=== PATIENT | female | born 1950 | race African-American/Black ===

== ENCOUNTER 2017-04-07 21:04 | Inpatient (IN) | payer OTHER ==
[~2017-04-07] VITALS: Ht 162.6 cm; Wt 68.5 kg
--- NOTE | ~2017-04-07 | EKG ---
PATIENT: DARWIN GUNN UNIT #: [id number] Ventricular Rate: 119 BPM Atrial Rate: 119 BPM P-R Interval: 148 ms QRS Duration: 64 ms Q-T Interval: 328 ms QTC Calculation(Bezet): 461 ms P [place]: 59 degrees Calculated R [place]: -21 degrees Calculated T [place]: 76 degrees Diagnosis Line: Sinus tachycardia Diagnosis Line: Possible Left atrial enlargement Diagnosis Line: Low voltage QRS Diagnosis Line: Septal infarct , age undetermined Diagnosis Line: Abnormal ECG Diagnosis Line: When compared with ECG of 28-FEB-2016 23:38, Diagnosis Line: Septal infarct is now Present Diagnosis Line: Confirmed by MALATHI DANGELO MD ([id number]) on Diagnosis Line: 04/08/2017 5:09:17 PM INTERPRETING MD: ANTOLIN DYER
--- NOTE | ~2017-04-07 | CR72 ---
[facility] A Service of [facility] RADIOLOGY TEXT RESULTS PATIENT: DARWIN GUNN LOCATION: [facility] 570-01 : 49 UNIT #: [id number] AGE: [address]: KASEY BRITTON V SEX: F ORDER DR: [id number] [facility] [address] [place], [place] [address] [id number] I MR#: [id number] Acc #: [id number] NAME: DARWIN GUNN : 1950 SEX: F STUDY DATE/TIME: 04/10/2017 12:55 UNIT: [facility] ROOM: [facility] STUDY DESCRIPTION: CR Chest Single View Portable Attending Physician: Kasey Britton M.D. Ordering Physician: Ramirez Pacheco M.D. Primary Care Physician: Primary Care Physician No MEDICAL IMAGING REPORT This report is preliminary unless electronic signature is present EXAM Frontal chest 04/10/2017 INDICATIONS 66-year-old female with shortness of air, cough and congestion since THE March. TECHNIQUE/COMPARISON Frontal chest, correlate with CT chest 04/08/2017 FINDINGS Right-sided MediPort catheter extends to the right atrial level. Correlate with desired level of positioning. Cardiac silhouette is stable. Lung volumes are low. The left lung is clear. There is persistent chronic appearing volume loss on the right. Opacities associated with operative changes in the midlung zone on the right are not significantly changed for technical factors. The patient has underlying adenopathy in the right hilum and subcarinal stations better demonstrated on the prior CT. No pneumothorax. IMPRESSION 1. Postop changes in the right lung with associated volume loss and probable atelectasis and scarring associated with the operative bed. 2. No pneumothorax or significant pleural effusion. Left lung clear. 3. MediPort catheter tip is in the right atrial region. Correlate with desired level of positioning. Dictated by... Carl Hutchison M.D. THIS IS AN ELECTRONICALLY VERIFIED REPORT Carl Hutchison M.D. at 04/10/2017 5:12 PM JLY/to STS. [facility] A Service of [facility] RADIOLOGY TEXT RESULTS PATIENT: DARWIN GUNN LOCATION: [facility] 570- : 49 UNIT #: [id number] AGE: [address]: KASEY BRITTON V SEX: F ORDER DR: TD: 04/10/2017 16:16 JOB #: [id number] MEDICAL IMAGING REPORT Page 1 of 1 COPY
--- NOTE | ~2017-04-07 | CT16 ---
[facility] A Service of [facility] & [facility] RADIOLOGY TEXT RESULTS PATIENT: DARWIN GUNN [facility]ATION: [facility] 570-01 : 49 UNIT #: [id number] AGE: [address]: KASEY BRITTON V SEX: F ORDER DR: [id number] [facility] [address] [place], [place] [address] [id number] MR#: [id number] Acc #: [id number] NAME: DARWIN GUNN : 1950 SEX: F STUDY DATE/TIME: 04/08/2017 02:03 UNIT: CEDOF ROOM: 19907 STUDY DESCRIPTION: CT Angio Chest for PE Attending Physician: Kasey Britton M.D. Ordering Physician: Karina Elizondo M.D. Primary Care Physician: No Primary Care Physician MEDICAL IMAGING REPORT This report is preliminary unless electronic signature is present EXAM Chest CTA, 04/08/17 at 02:03 INDICATIONS Nausea and vomiting today after radiation for lung cancer. Shortness of air today. TECHNIQUE Axial images were obtained through the chest following IV contrast administration. 3-D reformats were obtained. No comparison. This CT exam was performed with one or more of the following radiation dose reduction techniques: automatic exposure control, adjustment of mA and/or kV according to patient size, and iterative reconstruction. FINDINGS Exam is degraded by the lack of comparison studies. The exam is also degraded by respiratory motion. No central pulmonary embolism is seen. The more peripheral pulmonary arterial branches on both sides are fairly poorly evaluated due to artifact from excessive motion. No aortic dissection is seen. There is an aberrant right subclavian artery. There is coronary artery disease. There is subcarinal adenopathy measuring 2.5 cm short axis. No other definite adenopathy is seen. No pleural or pericardial effusion. Patient is status post partial lung resection on the right. Staple lines are present. There is pulmonary parenchymal density near the staple line which is presumably scar tissue. There may be some abnormal soft tissue in the hilum extending into the right lower lobe. Again, this presumably reflects tumor and evaluation is markedly limited by both the lack of comparisons as well as motion. No pneumothorax. No clearly suspicious osseous lesions. For description of findings in the upper abdomen, please [facility]. [facility] A Service of [facility] & [facility] RADIOLOGY TEXT RESULTS PATIENT: DARWIN GUNN [facility]ATION: [facility] 570-01 : [birth year] UNIT #: [id number] AGE: [address]: KASEY BRITTON V SEX: F ORDER DR: see the abdomen and pelvis CT report dictated separately. IMPRESSION 1. This exam is markedly degraded by excessive respiratory motion as well as the lack of comparison studies. 2. No central pulmonary embolism is seen. More peripheral pulmonary arterial branches in both lungs are fairly poorly evaluated due to motion. No aortic dissection. 3. Postop change with volume loss in the right hemithorax. Soft tissue density along the staple lines in the right lung is presumably scar tissue but comparison with outside priors is needed. Additionally, there is prominent soft tissue in the right hilum which may also reflect scar tissue or probably tumor based on patient history. 4. Subcarinal adenopathy. 5. Left lung grossly clear allowing for excessive motion. 6. Coronary artery disease and atherosclerotic disease. Dictated by... Kevin Cruz Jr., M.D. THIS IS AN ELECTRONICALLY VERIFIED REPORT Kevin Cruz Jr., M.D. at 04/08/2017 8:14 PM AYDIN/coty TD: 04/08/2017 11:49 JOB #: [id number] MEDICAL IMAGING REPORT Page 1 of 1 COPY
--- NOTE | ~2017-04-07 | CO ---
Unit #: [id number] #: [id number] Patient: DARWIN GUNN [id number] [address] [place], [place] [address] [id number] I MR#: [id number] NAME: DARWIN GUNN ROOM: 570 Age: 66 Sex: F Admission Date: 04/08/2017 : 1950 Attending Physician: Tyler Ramsey M.D. Consultation Date: 04/08/2017 CONSULTATION REPORT PRIMARY CARE Marily Khalil M.D. REASON FOR EVALUATION Neutropenia, chemotherapy induced, and possible colitis. HISTORY OF PRESENT ILLNESS A 66-year-old lady with a history of nonsmall cell lung cancer, we do not have the records yet, states that she has been treated with about 15 radiation treatments and weekly chemotherapy. Last chemotherapy was about five days ago. She does not remember the dates very well and does not know the name of the doctor and the radiation, but the chemotherapy doctor is Dr. Damion Chinchilla. PAST MEDICAL HISTORY 1. Cerebrovascular accident with left-sided weakness. 2. Essential hypertension. 3. No other major illnesses. CHRONIC MEDICATIONS 1. Vitamins. 2. Aspirin. 3. Some high blood pressure medication, she does not know the name. ALLERGIES No known allergies. FAMILY HISTORY Highly positive for malignancies of various types, but she herself had lung cancer. SOCIAL HISTORY Quit smoking about a year ago. Occasional beer. Lives with a cousin. REVIEW OF SYSTEMS Tiredness, abdominal pain, shortness of breath, and cough. Otherwise, six to eight systems were within normal limits. PHYSICAL EXAMINATION GENERAL: She does have right-sided weakness. LYMPHATICS: No palpable nodes. LUNGS: Left lung is clear. Right side with poor air entry. CARDIOVASCULAR: Distant S1 and S2. ABDOMEN: No palpable liver or spleen. Unit #: [id number] #: [id number] Patient: DARWIN GUNN CENTRAL NERVOUS SYSTEM: Not examined in detail. She moves upper and lower extremities well. There is some weakness on the facial muscles, and memory was not checked in detail. PELVIC/BREASTS: Not performed. DIAGNOSTIC STUDIES LABORATORY: Chemistries with glucose 177, BUN 6, creatinine 0.5, sodium 137, potassium 3.5, chloride 111, and CO2 of 22. Hemoglobin 8.7, hematocrit 26.5, MCV 89.3, white count 1000, and platelets 156,000 with 76% neutrophils and 15% lymphocytes. IMPRESSION 1. Neutropenia with very low-grade temperature. 2. Radiation chemotherapy induced #1. 3. Lung cancer, nonsmall cell, currently undergoing radiation and chemotherapy concurrently in the [facility]. 4. Hypertension. 5. History of cerebrovascular accident, stable. PLAN Agree with broad spectrum antibiotics and GCSF, 5 mcg/kg is adequate. We shall monitor the CBCs closely and discuss with Dr. Chinchilla in the morning that she is here and what we are doing for her, and that we will send her back for his care as soon as she is up and about. Dictated by... Rey Valentin M.D. SPS/serene TD: 04/08/2017 21:42 JOB #: [id number] CONSULTATION REPORT Page 1 of 1 X Rey Valentin MD X CONSULTATION REPORT
--- NOTE | ~2017-04-07 | DS ---
Unit #: [id number] #: [id number] Patient: DARWIN GUNN [id number] [address] [address] [id number] I MR#: [id number] NAME: DARWIN GUNN ROOM: 570 Age: 66 Sex: F Admission Date: 04/08/2017 : 1950 Discharge Date: 04/12/2017 Attending Physician: Tyler Ramsey M.D. Primary Care Physician: Amberly Primary Care Physician DISCHARGE SUMMARY DISCHARGE DIAGNOSES 1. Diverticulitis. 2. Sepsis. 3. Miz-talph-crge lung cancer. 4. History of CVA with left-sided paralysis. 5. Acute bronchitis. 6. Chemo-induced neutropenia. HOSPITAL COURSE The patient is a 66-year-old female with dxe-zknak-zueo lung cancer, undergoing chemo and radiation. She was admitted for diverticulitis. She was noted to have a fever upon admission and CT scan showed diverticulitis. The patient was noted to be neutropenic upon presentation, felt secondary to her ongoing chemo for her cancer. The patient was stated on IV antibiotics and admitted. The patient was seen in consultation by oncology, who ordered GCSF. At this time her white blood cell count is 3.5 with 72% neutrophils. The patient states that she is now tolerating a diet, but not having any significant nausea. As a result she is being discharged home at this time to complete six more days of IV antibiotics. DISCHARGE MEDICATIONS 1. Ventolin 1 puff daily. 2. Lomotil light 2.5 mg p.o. q.i.d. p.r.n. diarrhea. 3. Aspirin 325 mg p.o. daily. 4. Augmentin 875 mg p.o. b.i.d. times 6 days. 5. Metronidazole 500 mg p.o. t.i.d. times 6 days. FOLLOWUP The patient states she has a followup with oncology on Friday and I have encouraged her to keep that appointment. Dictated by... Omid Harris M.D. DIANDRA/emery TD: 04/13/2017 07:41 JOB #: [id number] Unit #: [id number] #: [id number] Patient: DARWIN GUNN DISCHARGE SUMMARY Page 1 of 1 X Omid Harris MD X DISCHARGE SUMMARY
--- NOTE | ~2017-04-07 | CR72 ---
[facility] A Service of [facility] RADIOLOGY TEXT RESULTS PATIENT: DARWIN GUNN LOCATION: [facility] : [birth year] UNIT #: [id number] AGE: [address]: KASEY BRITTON V SEX: F ORDER DR: [id number] [facility] [address] [place], [place] [address] [id number] I MR#: [id number] Acc #: [id number] NAME: DARWIN GUNN : 1950 SEX: F STUDY DATE/TIME: 04/07/2017 23:00 UNIT: CEDOF ROOM: 92162 STUDY DESCRIPTION: CR Chest Single View Portable Attending Physician: Kasey Britton M.D. Ordering Physician: Karina Elizondo M.D. Primary Care Physician: No Primary Care Physician MEDICAL IMAGING REPORT This report is preliminary unless electronic signature is present EXAM Portable chest 04/07/20 at 23:00 hours INDICATIONS Cough, congestion and shortness of air today. FINDINGS AP portable chest was obtained. No comparison. The left lung is clear. Masslike density in the right hilum is noted. There are numerous staple lines in the right lung. There is elevation of the right hemidiaphragm. Patient also has a right side Port-A-Cath with tip in the right atrial level. The patient presumably has a history of lung cancer. No history is been provided as such. No acute infiltrates. Heart size normal. IMPRESSION Postoperative changes with volume loss in the right hemithorax. Patient presumably has a history of malignancy. Correlate clinically as no relevant history is been provided in this regard. No clear acute findings in the chest. Dictated by... Kevin Cruz Jr., M.D. THIS IS AN ELECTRONICALLY VERIFIED REPORT Kevin Cruz Jr., M.D. at 04/08/2017 8:13 PM AYDIN/coty TD: 04/08/2017 11:32 JOB #: [id number] [facility] A Service of [facility] RADIOLOGY TEXT RESULTS PATIENT: DARWIN GUNN LOCATION: [facility] 570-01 : [birth year] UNIT #: [id number] AGE: [address]: KASEY BRITTON V SEX: F ORDER DR: MEDICAL IMAGING REPORT Page 1 of 1 COPY
--- NOTE | ~2017-04-07 | HP ---
Unit #: [id number] #: [id number] Patient: DARWIN GUNN [id number] [address] [address] [id number] I MR#: [id number] NAME: DARWIN GUNN ROOM: [address]345 Age: 66 Sex: F Admission Date: 04/08/2017 : 1950 Attending Physician: Marily Khalil M.D. Primary Care Physician: No Primary Care Physician HISTORY AND PHYSICAL CHIEF COMPLAINT Diverticulitis, chemotherapy induced neutropenia. HISTORY This pleasant 66-year-old female with non-small cell lung cancer, currently undergoing radiation and chemotherapy, is admitted for diverticulitis and neutropenia. The patient herself is only a fair historian. She states that she last received chemotherapy five days ago. Yesterday she underwent radiation treatment. Developed lower abdominal pain and presented to this emergency department late last evening. Her rectal temperature was 100.7, she was tachycardic. CT scans performed showed probable sigmoid diverticulitis. The patient's white blood count is 1.l. Her ANC is around 88. She was bolused with IV fluids, given Zosyn, vancomycin and tobramycin. PAST MEDICAL HISTORY 1. Stage 3A non-small cell lung cancer diagnosed about a year ago. Status post right middle lobe lobectomy. Patient currently is receiving chemotherapy and radiation treatment. Her oncologist is Dr. Chinchilla. 2. Previous CVA with left-sided weakness. 3. Essential hypertension. 4. BTL. 5. Right chest port placement. ALLERGIES No known drug allergies. HOME MEDICATIONS Antihypertensive medication, vitamins and aspirin. She receives her prescriptions through [facility]. FAMILY HISTORY Positive for malignancy. SOCIAL HISTORY The patient lives with her cousin. She stopped smoking about a year ago, drinks occasional beer. REVIEW OF SYSTEMS Notable for abdominal pain, nausea, some diarrhea, chills, lung cancer, hypertension, previous stroke and above mentioned surgeries. All other systems were reviewed and otherwise negative. Unit #: [id number] #: [id number] Patient: DARWIN GUNN PHYSICAL EXAMINATION GENERAL: Pleasant, 66-year-old female currently in no acute distress. VITAL SIGNS: Rectal temperature 100.7, pulse 129, respirations 30, blood pressure 108/80, O2 saturation is 100% on room air. HEENT: Eyes - PERRLA, extraocular muscles are intact. Pharynx is benign with a left lower facial droop. NECK: Supple without adenopathy or thyromegaly. CHEST: Fairly clear. CARDIAC: Slightly tachy S1 and S2 without murmur. ABDOMEN: Bowel sounds are present. Patient is tender in the left lower quadrant but without rebound or guarding. No definite hepatosplenomegaly or masses. EXTREMITIES: Without clubbing, cyanosis or edema. Pedal pulses are present. NEUROLOGIC: Patient is awake, alert and oriented. She has a left lower facial droop. She has a left arm hemiparesis, although she is fairly strong in her legs. DIAGNOSTIC STUDIES ADMISSION LABS: Hematocrit is 29.3, down from 36.3 last year, white blood count is 1.1 with an ANC of about 88. Normal platelet count. Normal MCV. Cardiac markers are negative. SMA 12 - glucose 127, sodium 130, potassium 3.4, bilirubin is 2.4, alk phos 102, normal lipase. Alcohol level less than 5. Lactic acid, normal as is BNP. Cardiac markers are negative. Urine tox screen negative. Urinalysis - trace leukocyte esterase, positive nitrates and protein but without significant white cells, red cells, or bacteria. CARDIOLOGY STUDIES: EKG - sinus tachycardia, rate 120, somewhat low voltage. IMAGING STUDIES: Chest x-ray - postop changes with volume loss right hemithorax. CTA of the chest is limited but no gross PE. Postop changes with soft tissue density on the right, which may represent tumor versus scar tissue. Subcarinal adenopathy. CAD. CT scan of the abdomen and pelvis - probable sigmoid diverticulitis. Lipoma. Shotty retroperitoneal abdominal lymph nodes. ASSESSMENT 1. Likely diverticulitis with early sepsis. Blood cultures and urine cultures are pending. Two other etiologies such as UTI, etc. 2. Status post right thoracotomy. Patient currently is receiving chemo and radiation for stage 3A, non-small cell lung cancer. Last chemotherapy was five days ago. 3. Prior CVA with left-sided weakness. 4. History of hypertension. PLANS 1. Continue IV Zosyn. Patient did received 1 dose of Tobra and vancomycin pending cultures. 2. IV fluids. 3. Granix, reverse isolation and consult hematology. Will obtain daily CBC. 4. DVT prophylaxis. Unit #: [id number] #: [id number] Patient: DARWIN GUNN. Obtain home medication list. Dictated by Marily Khalil M.D. AML/ts TD: 04/08/2017 05:31 JOB #: [id number] CC: Zackary Singer HISTORY AND PHYSICAL Page 1 of 1 X Marily Khalil MD X HISTORY AND PHYSICAL
--- NOTE | ~2017-04-07 | CT2 ---
[facility] A Service of [facility] RADIOLOGY TEXT RESULTS PATIENT: DARWIN GUNN LOCATION: [facility] 570-01 : [birth year] UNIT #: [id number] AGE: [address]: KASEY BRITTON V SEX: F ORDER DR: [id number] [facility] [address] [place], [place] [address] [id number] MR#: [id number] Acc #: [id number] NAME: DARWIN GUNN : 1950 SEX: F STUDY DATE/TIME: 04/08/2017 02:03 UNIT: CEDOF ROOM: 78934 STUDY DESCRIPTION: CT Abd and Pelv W Cont Attending Physician: Kasey Britton M.D. Ordering Physician: Karina Elizondo M.D. Primary Care Physician: Primary Care Physician No MEDICAL IMAGING REPORT This report is preliminary unless electronic signature is present EXAM CT abdomen and pelvis, 04/08 at 02:03 INDICATION Nausea, vomiting today after radiation treatment for lung cancer. Shortness of air today as well. TECHNIQUE Axial images were obtained through the abdomen and pelvis following IV contrast administration. Multiplanar reformats were obtained. This CT exam was performed with one or more of the following radiation dose reduction techniques: automatic exposure control, adjustment of mA and/or kV according to patient size, and iterative reconstruction. COMPARISON None FINDINGS ABDOMEN: For a description of findings in the lung bases, please see the chest CT report dictated separately. The gallbladder is grossly normal. The exam is degraded by motion. Solid organs are grossly normal. There is atherosclerotic disease. There is some shotty retroperitoneal lymph nodes, but no adenopathy by size criteria is identified. No free fluid is seen. GI tract is grossly normal. PELVIS: The urinary bladder is decompressed by a Connell catheter. There is diffuse sigmoid diverticulosis. Additionally, there is some fat stranding in the left hemipelvis and I cannot exclude mild acute diverticulitis. The appendix is normal. Distal small bowel unremarkable. There is a lipoma in the left hemipelvis anterior to the psoas muscle extending into the proximal thigh on the left. No adenopathy in the pelvis. Solid pelvic organs have an age-appropriate appearance. No STS. [facility] A Service of [facility] RADIOLOGY TEXT RESULTS PATIENT: DARWIN GUNN LOCATION: [facility] 570-01 : [birth year] UNIT #: [id number] AGE: [address]: KASEY BRITTON V SEX: F ORDER DR: suspicious osseous lesions. IMPRESSION 1. Motion degraded exam. 2. Probable sigmoid diverticulitis. No abscess is seen. There is no bowel obstruction. The appendix is normal. 3. 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 4. Well-positioned Connell catheter decompressing the urinary bladder. 5. There are some shotty retroperitoneal nodes in the abdomen but no pathologic adenopathy is seen. These are probably benign. No convincing evidence for metastatic disease in the abdomen or pelvis. Comparison with outside priors would be useful. Dictated by... Kevin Cruz Jr., M.D. THIS IS AN ELECTRONICALLY VERIFIED REPORT Kevin Cruz Jr., M.D. at 04/08/2017 8:14 PM AYDIN/yadira TD: 04/08/2017 11:50 JOB #: [id number] MEDICAL IMAGING REPORT Page 1 of 1 COPY
[~2017-04-07 21:04] MED LIST: ERYTHROMYCIN O3.5 GM OD; LORTAB 10-5001 EACH PO
[2017-04-07 23:47] LABS: POC - CKMB <1.0 ng/mL (0.0-7.9); POC - TROPONIN <0.05 ng/mL (<=0.05)
[2017-04-07 23:58] LABS: BASOPHIL% 0.3 % (0-2.5); EOSINOPHIL% 0.3 % (0.0-7.0); HEMATOCRIT 29.3 % (35.0-45.0); HEMOGLOBIN 9.5 gm/dL (12.0-16.0); LYMPHOCYTE# 0.3 X10e3 (1.0-3.5); LYMPHOCYTE% 27.1 % (17.0-45.0); MEAN CELL VOLUME 88.6 FL (83-96); MEAN CORPUSCULAR HEMOGLOBIN 28.8 PG (28-34); MEAN CORPUSCULAR HGB CONC 32.5 g/dL (30-36); MEAN PLATELET VOLUME 9.3 FL (6.5-11.5); MONOCYTE# 0.1 X10e3 (0-1.0); NEUTROPHIL# 0.7 X10e3 (1.5-7.1); NEUTROPHIL% 64.3 % (40-75); PLATELET COUNT 174 X10e3 (140-420); RED BLOOD COUNT 3.31 X10e (3.90-5.30); RED CELL DISTRIBUTION WIDTH 23.1 % (11.0-15.5); WHITE BLOOD COUNT 1.1 X10e3 (4.0-10.5)
[2017-04-08] LABS: DIFF IND YES
[2017-04-08 00:04] LABS: ALKALINE PHOSPHATASE 102 U/L (32-92); ALT (SGPT) 20 U/L (10-40); AST (SGOT) 24 U/L (10-42); BILIRUBIN,INDIRECT 1.4 mg/dL (0.0-0.9); BILIRUBIN,TOTAL 2.4 mg/dL (0.2-2.0); BLOOD UREA NITROGEN 9 mg/dL (9-23); CALCIUM SERUM 9.9 mg/dL (8.4-10.2); CARBON DIOXIDE 22 mmol/L (22-31); CHLORIDE 102 mmol/L (100-111); CREATININE SERUM 0.5 mg/dL (0.6-1.4); GLOM FILT RATE Estimated 116.1 mL/min (>60); GLUCOSE FASTING 127 mg/dL (70-110); LIPASE 13 U/L (22-51); POTASSIUM 3.4 mmol/L (3.5-5.1); PROTEIN TOTAL SERUM 7.8 g/dL (6.0-8.3); SODIUM 130 mmol/L (135-145)
[2017-04-08 00:11] LABS: ALCOHOL BLOOD <5 mg/dL (0)
[2017-04-08 01:24] LABS: NUCLEATED RED BLOOD CELL 2 /100 (0)
[2017-04-08 01:25] LABS: HYPOCHROMIA SL; PLATELET ESTIMATE NORMAL (NORMAL); POIKILOCYTOSIS MOD
[2017-04-08 01:34] LABS: URINE SOURCE CATH
[2017-04-08 01:43] LABS: URINE APPEARANCE TURBID; URINE BLOOD NEG (NEG); URINE COLOR DK YELLOW; URINE GLUCOSE NEG (NEG); URINE KETONE NEG (NEG); URINE LEUKOCYTE ESTERASE TRACE (NEG); URINE NITRATE POS (NEG); URINE PROTEIN TRACE (NEG); URINE SPECIFIC GRAVITY 1.039 (1.003-1.035)
[2017-04-08 01:47] LABS: U HYALINE CASTS AUWI 0-2 /[LPF]; URINE BACTERIA AUWI NEG (NEGATIVE); URINE SQUAMOUS EPITHELIAL CELL FEW /[HPF]
[2017-04-08 01:55] LABS: CULTURE INDICATED? NO
[2017-04-08 01:57] LABS: URINE BILIRUBIN POS (NEG)
[2017-04-08 01:58] LABS: POC - CKMB <1.0 ng/mL (0.0-7.9); POC - TROPONIN <0.05 ng/mL (<=0.05)
[2017-04-08 02:11] LABS: AMPHETAMINE NEG (NEG); BARBITURATES NEG (NEG); BENZODIAZEPINES NEG (NEG); COCAINE NEG (NEG); MARIJUANA NEG (NEG); OPIATES NEG (NEG); TRICYCLIC ANTIDEPRESSANTS NEG (NEG); U METHADONE NEG (NEG)
[2017-04-08 08:58] LABS: BASOPHIL% 0.2 % (0-2.5); EOSINOPHIL% 0.6 % (0.0-7.0); HEMATOCRIT 26.5 % (35.0-45.0); HEMOGLOBIN 8.7 gm/dL (12.0-16.0); LYMPHOCYTE# 0.2 X10e3 (1.0-3.5); LYMPHOCYTE% 15.6 % (17.0-45.0); MEAN CELL VOLUME 89.3 FL (83-96); MEAN CORPUSCULAR HEMOGLOBIN 29.4 PG (28-34); MEAN PLATELET VOLUME 8.6 FL (6.5-11.5); MONOCYTE# 0.1 X10e3 (0-1.0); MONOCYTE% 7.2 % (3.0-12.0); NEUTROPHIL# 0.8 X10e3 (1.5-7.1); NEUTROPHIL% 76.4 % (40-75); PLATELET COUNT 156 X10e3 (140-420); RED BLOOD COUNT 2.96 X10e (3.90-5.30); RED CELL DISTRIBUTION WIDTH 23.6 % (11.0-15.5)
[2017-04-08 09:00] LABS: DIFF IND NO
[2017-04-08 09:19] LABS: CALCIUM SERUM 9.1 mg/dL (8.4-10.2); CREATININE SERUM 0.5 mg/dL (0.6-1.4); GLOM FILT RATE Estimated 116.1 mL/min (>60); POTASSIUM 3.5 mmol/L (3.5-5.1)
[2017-04-08] MEDS ORDERED: PATIENT'S PHARMACY (11:46)
[2017-04-08] MEDS ORDERED: HYDROCODON-ACE1 EAC7 PO (11:47)
[2017-04-08] MEDS ORDERED: LOMOTIL WHITE2.5 M1 PO (11:47)
[2017-04-08] MEDS ORDERED: ALBUTEROL17 GM INH (11:48)
[2017-04-09 06:46] LABS: BASOPHIL% 0.1 % (0-2.5); HEMATOCRIT 23.9 % (35.0-45.0); HEMOGLOBIN 7.9 gm/dL (12.0-16.0); LYMPHOCYTE# 0.2 X10e3 (1.0-3.5); LYMPHOCYTE% 14.7 % (17.0-45.0); MEAN CORPUSCULAR HEMOGLOBIN 29.8 PG (28-34); MEAN CORPUSCULAR HGB CONC 33.1 g/dL (30-36); MEAN PLATELET VOLUME 9.5 FL (6.5-11.5); MONOCYTE# 0.1 X10e3 (0-1.0); MONOCYTE% 9.7 % (3.0-12.0); NEUTROPHIL# 1.1 X10e3 (1.5-7.1); NEUTROPHIL% 74.5 % (40-75); PLATELET COUNT 139 X10e3 (140-420); RED BLOOD COUNT 2.65 X10e (3.90-5.30); RED CELL DISTRIBUTION WIDTH 23.2 % (11.0-15.5); WHITE BLOOD COUNT 1.5 X10e3 (4.0-10.5)
[2017-04-09 06:47] LABS: DIFF IND NO
[2017-04-09 07:10] LABS: BLOOD UREA NITROGEN <5 mg/dL (9-23); CALCIUM SERUM 9.4 mg/dL (8.4-10.2); CARBON DIOXIDE 22 mmol/L (22-31); CHLORIDE 111 mmol/L (100-111); CREATININE SERUM 0.4 mg/dL (0.6-1.4); GLOM FILT RATE Estimated 124.9 mL/min (>60); GLUCOSE FASTING 107 mg/dL (70-110); POTASSIUM 3.4 mmol/L (3.5-5.1); SODIUM 138 mmol/L (135-145)
[2017-04-10 05:58] LABS: HEMOGLOBIN 8.4 gm/dL (12.0-16.0); MEAN CORPUSCULAR HEMOGLOBIN 28.9 PG (28-34); MEAN CORPUSCULAR HGB CONC 32.1 g/dL (30-36); MEAN PLATELET VOLUME 8.9 FL (6.5-11.5); RED BLOOD COUNT 2.89 X10e (3.90-5.30); RED CELL DISTRIBUTION WIDTH 23.8 % (11.0-15.5)
[2017-04-11 07:01] LABS: HEMATOCRIT 25.3 % (35.0-45.0); HEMOGLOBIN 8.4 gm/dL (12.0-16.0); MEAN CELL VOLUME 88.6 FL (83-96); MEAN CORPUSCULAR HEMOGLOBIN 29.5 PG (28-34); MEAN CORPUSCULAR HGB CONC 33.2 g/dL (30-36); RED BLOOD COUNT 2.86 X10e (3.90-5.30); RED CELL DISTRIBUTION WIDTH 24.3 % (11.0-15.5); WHITE BLOOD COUNT 2.1 X10e3 (4.0-10.5)
[2017-04-12 06:51] LABS: BASOPHIL% 0.2 % (0-2.5); EOSINOPHIL% 0.4 % (0.0-7.0); HEMATOCRIT 25.6 % (35.0-45.0); HEMOGLOBIN 8.5 gm/dL (12.0-16.0); LYMPHOCYTE# 0.4 X10e3 (1.0-3.5); LYMPHOCYTE% 10.6 % (17.0-45.0); MEAN CORPUSCULAR HEMOGLOBIN 29.5 PG (28-34); MEAN CORPUSCULAR HGB CONC 33.2 g/dL (30-36); MEAN PLATELET VOLUME 9.1 FL (6.5-11.5); MONOCYTE# 0.8 X10e3 (0-1.0); MONOCYTE% 22.2 % (3.0-12.0); NEUTROPHIL# 2.3 X10e3 (1.5-7.1); NEUTROPHIL% 66.6 % (40-75); PLATELET COUNT 139 X10e3 (140-420); RED BLOOD COUNT 2.88 X10e (3.90-5.30); RED CELL DISTRIBUTION WIDTH 23.9 % (11.0-15.5)
[2017-04-12 06:57] LABS: DIFF IND YES; WHITE BLOOD COUNT 3.5 X10e3 (4.0-10.5)
[2017-04-12 09:15] LABS: NUCLEATED RED BLOOD CELL 4 /100 (0); PLATELET ESTIMATE DECREASED (NORMAL)
[2017-04-12 09:16] LABS: ANISOCYTOSIS SL; DOHLE BODIES SL; POIKILOCYTOSIS SL; POLYCHROMASIA SL
[2017-04-12] MEDS ORDERED: BAYER ASPIRIN325 M1 PO (16:58)
[2017-04-12] MEDS ORDERED: METRONIDAZOLE PO (16:59)
[2017-04-12] MEDS ORDERED: AMOXICILLIN875 MG PO (16:59)
== END 2017-04-12 18:15 | disposition home or self-care (01) | DRG 808 ==
LOC: CED 21:04 → C5C 04-08 04:00 → CEDOF 04-08 04:00 → CED 04-08 04:08 → CEDOF 04-08 04:08 → C5C 04-08 12:32
PROVIDERS: Emergency Medicine; Internal Medicine
PROC: B32TYZZ Computerized Tomography (CT Scan) of Left Pulmonary Artery using Other Contrast (ICD-10-PCS; principal; 2017-04-08)
PROC: B32SYZZ Computerized Tomography (CT Scan) of Right Pulmonary Artery using Other Contrast (ICD-10-PCS; 2017-04-08)
DX: D70.1 Agranulocytosis secondary to cancer chemotherapy (principal); A41.9 Sepsis, unspecified organism; I69.354 Hemiplegia and hemiparesis following cerebral infarction affecting left non-dominant side; K57.32 Diverticulitis of large intestine without perforation or abscess without bleeding; C34.90 Malignant neoplasm of unspecified part of unspecified bronchus or lung; I10 Essential (primary) hypertension; Z87.891 Personal history of nicotine dependence; J20.9 Acute bronchitis, unspecified; T45.1X5A Adverse effect of antineoplastic and immunosuppressive drugs, initial encounter; Y92.9 Unspecified place or not applicable; Z98.51 Tubal ligation status; Z80.9 Family history of malignant neoplasm, unspecified
CPT/HCPCS: 36415; 51702; 71010; 71275; 74177; 80048; 80076; 80307; 81003; 82553; 83605; 83690; 83880; 84484; 85025; 85027; 87040; 87070; 87205; 93005; 94640; 94760; 96361; 96365; 96375; 99285; G0480; J1442; J1447; J1642; J1650; J2543; J3260; J3370; Q9967

== ENCOUNTER 2017-05-03 09:02 | Inpatient (IN) | payer OTHER ==
[~2017-05-03] VITALS: Ht 162.6 cm; Wt 61.0 kg
--- NOTE | ~2017-05-03 | OR ---
Unit #: [id number] #: [id number] Patient: DARWIN GUNN [id number] [address] [place], [place] [address] [id number] MR#: [id number] NAME: DARWIN GUNN ROOM: [facility] Date of Procedure: 05/05/2017 Admission Date: 05/03/2017 Surgeon: Nakul Orozco M.D. : 1950 Attending Physician: Kaylynn Hendrix M.D. Primary Care Physician: Hiwot Nelson M.D. OPERATIVE REPORT ADDITIONAL ATTENDING PHYSICIAN Kaylynn Hendrix M.D. PRIMARY CARE PHYSICIAN Hiwot Nelson M.D. PREOPERATIVE DIAGNOSES Nausea and vomiting as well as possible infectious colitis. PROCEDURES PERFORMED 1. Upper gastrointestinal endoscopy and biopsy. 2. Upper gastrointestinal endoscopy and hemorrhage control. POSTOPERATIVE DIAGNOSES 1. The patient had an anterior duodenal ulcer with a visible vessel and stigmata of recent bleed in the form of fresh blood and clots in the duodenum. This was treated. Hemostasis was achieved by injection of 1:10,000 epinephrine followed by application of heater probe. 2. Prepyloric antral gastritis. 3. Rest of the examination up to third part of duodenum was normal. A biopsy was also obtained from the antrum for CLOtest. RECOMMENDATIONS We will repeat the patient's CBC at 4:00 p.m. She can be started on full liquid diet and also start her on Protonix 40 mg IV q.12 hours. The patient has evidence of colitis on a CAT scan and depending upon her hemoglobin stability, a colonoscopy will be performed either tomorrow or day after tomorrow. SEDATION USED MAC. DESCRIPTION OF PROCEDURE Following detailed explanation of potential risks and complications of upper endoscopy, namely perforation, bleeding, and complications related to sedation, the patient was brought to GI lab and laid in the left lateral decubitus position. Lubricated tip of the Olympus video upper endoscope was passed through the bite block into the proximal esophagus under direct vision. The entire esophageal mucosa was examined and appeared normal. Z-line was nicely demarcated, there being no esophagitis or hiatus hernia. The scope was then advanced into the gastric cavity and the latter was insufflated. Mucosa of the fundus, body, and antrum was Unit #: [id number] #: [id number] Patient: DARWIN GUNN examined and prepyloric antral erythema and erosions noted indicating mild antral gastritis. Pylorus was intubated with visualization of the duodenal bulb. The latter revealed presence of anterior duodenal ulcer. This was about 1.5 cm in size. It was superficial and grayish-white, however, had a stigmata of recent bleed in the form of visible vessel and adherent clot along with some fresh blood in the duodenum. The second and third part of duodenum were normal. The attention was focused on the visible vessel. After removal of the clot, this was ablated using 1:10,000 epinephrine followed by application of heater probe. The scope was then withdrawn in the antrum and retroverted, whereupon incisura, cardia, and greater curve examined and biopsy obtained from the antrum for CLOtest. The scope was then withdrawn in the distal esophagus. The entire esophageal mucosa was examined all the way up to pharynx. No additional findings noted. The scope was then withdrawn. The patient returned to recovery area. She tolerated the procedure without any postprocedure complications. Dictated by... Zackary Melissa/aleida TD: 05/06/2017 05:30 JOB #: [id number] Rosaura Max M.D. OPERATIVE REPORT Page 1 of 1 X Nakul Orozco MD X PROCEDURE OPERATIVE NOTE
--- NOTE | ~2017-05-03 | CR72 ---
[facility] A Service of [facility] RADIOLOGY TEXT RESULTS PATIENT: DARWIN GUNN LOCATION: C3A 330-01 : [birth year] UNIT #: [id number] AGE: [address]: Kaylynn Hendrix MD SEX: F ORDER DR: [id number] [facility] [address] [place], [place] [address] [id number] MR#: [id number] Acc #: [id number] NAME: DARWIN GUNN : 1950 SEX: F STUDY DATE/TIME: 05/03/2017 10:02 UNIT: [facility] ROOM: STUDY DESCRIPTION: CR Chest Single View Portable Attending Physician: Sherrill Booth A.P.R.N. Ordering Physician: Ed Celio Pacheco M.D. Primary Care Physician: Hiwot Nelson M.D. MEDICAL IMAGING REPORT This report is preliminary unless electronic signature is present EXAM AP view of the chest. COMPARISON April 10, 2017, and April 07, 2017. CT angiography of the chest dated April 08, 2017. INDICATIONS 66-year-old female with dyspnea and productive cough for 2 days. History of lung cancer. FINDINGS Postsurgical scarring is stable in the right lung. There is stable right hilar density as compared to radiograph of April 07, 2017, and CT of April 08, 2017. This may be postsurgical in nature and may reflect treated metastatic disease. Residual malignancy cannot be excluded. Continued imaging followup recommended. Subclavian approach right chest port catheter is noted with access needle in place. The catheter tip terminates deep in the right atrium. Consider repositioning. No evidence of pneumothorax, pleural effusion or acute airspace disease. Stable elevation of the right hemidiaphragm likely due to partial right lung resection. Calcification of the left subclavian and right subclavian arteries. IMPRESSION No acute radiographic abnormality of the chest. Stable postsurgical scarring in the right lung with stable right hilar fullness. This may reflect treated malignancy or simply crowding of bronchovascular structures. Residual malignancy cannot be excluded. Continued imaging followup recommended. No pleural effusion. Dictated by... Miki Haider M.D. [facility] A Service of [facility] RADIOLOGY TEXT RESULTS PATIENT: DARWIN GUNN LOCATION: [facility] 330-01 : [birth year] UNIT #: [id number] AGE: [address]: Kaylynn Hendrix MD SEX: F ORDER DR: THIS IS AN ELECTRONICALLY VERIFIED REPORT Miki Haider M.D. at 05/05/2017 10:22 PM Holly TD: 05/03/2017 14:05 JOB #: [id number] MEDICAL IMAGING REPORT Page 1 of 1 COPY
--- NOTE | ~2017-05-03 | EKG ---
PATIENT: DARWIN GUNN UNIT #: [id number] Ventricular Rate: 97 BPM Atrial Rate: 97 BPM P-R Interval: 144 ms QRS Duration: 62 ms Q-T Interval: 356 ms QTC Calculation(Bezet): 452 ms P [place]: 51 degrees Calculated R [place]: -6 degrees Calculated T [place]: 48 degrees Diagnosis Line: Normal sinus rhythm Diagnosis Line: Normal ECG Diagnosis Line: When compared with ECG of 03-MAY-2017 09:24, Diagnosis Line: Criteria for Septal infarct are no longer Present Diagnosis Line: Confirmed by KITTY HART MD ([id number]) on 05/08/2017 Diagnosis Line: 10:20:40 PM INTERPRETING MD: TANNER DYER
--- NOTE | ~2017-05-03 | CO ---
Unit #: [id number] #: [id number] Patient: DARWIN GUNN [id number] [id number] [facility]. [place], [place] [address] [id number] I MR#: [id number] NAME: DARWIN GUNN ROOM: 330 Age: 66 Sex: F Admission Date: 05/03/2017 : 1950 Attending Physician: Kaylynn Hendrix M.D. Primary Care Physician: Hiwot Nelson M.D. Consultation Date: 05/07/2017 CONSULTATION REPORT REASON FOR CONSULTATION Nonsustained ventricular tachycardia. HISTORY OF PRESENT ILLNESS This is a 66-year-old female with a past medical history of previous admission to [facility] from 04/08/2017 through 04/12/2017 for diverticulitis and sepsis. Additional past medical history includes non-small cell lung cancer, stage IIIa, status post right middle lobe lobectomy. The patient previously underwent radiation and is also on chemotherapy. She has a history of cerebrovascular accident with left hemiparesis reportedly in 2007. She is known to have hypertension, hyperlipidemia, COPD, and chronic anemia. According to documentation, she follows with [facility]. She does have a documented diagnosis of diastolic congestive heart failure and paroxysmal atrial fibrillation. According to records, the patient has a normal ejection fraction. Further records have been requested and are pending. The patient denies history of coronary artery disease or prior stress test or cardiac catheterizations. She denies atrial fibrillation, but paroxysmal atrial fibrillation is documented in the [facility] notes. She is on chronic anticoagulation with Eliquis. She presented to the emergency department on 05/03/2017 with complaints of abdominal pain. She has had abdominal pain for the last several days. The pain is in the umbilical area. Associated symptoms include nausea, vomiting and diarrhea. She admits to some fever, but no chills. There were no reports of bleeding, but she was fecal occult positive. She denies dizziness or syncope. She has had some palpitations intermittently. There are no reports of chest pain, but she has had some shortness of breath, which is reportedly chronic and not new. She denies PND, orthopnea or lower extremity edema. CT of the abdomen and pelvis revealed inflammatory changes in the distal descending colon and proximal to mid sigmoid colon suggesting infectious versus inflammatory colitis. Diverticulitis was also a consideration. She was admitted and started on antibiotics. Gastroenterology was consulted. The patient underwent an EGD on 05/05/2017, which revealed a duodenal ulcer and visible vessel as well as gastritis. She had a heat probe and sclerotherapy with epi and clip. She was ultimately recommended for a colonoscopy, but is apparently refusing the bowel prep. Telemetry has revealed frequent PVCs as well as nonsustained ventricular tachycardia. The patient's potassium is 3.0. She is currently undergoing replacement. Cardiology was consulted for nonsustained ventricular tachycardia. Unit #: [id number] #: [id number] Patient: DARWIN GUNN PAST MEDICAL HISTORY 1. Previous admission to [facility] from 04/08/2017 through 04/12/2017 for diverticulitis and sepsis. 2. Non-small cell lung cancer, stage IIIa, status post right middle lobe lobectomy with radiation and current chemotherapy. 3. History of cerebrovascular accident with left hemiparesis. 4. Hypertension. 5. Hyperlipidemia. 6. COPD. 7. Chronic diastolic congestive heart failure, details pending. 8. History of paroxysmal atrial fibrillation, now sinus rhythm. 9. Chronic anemia. 10. Reformed tobacco abuse, remote, quit 2 months ago. PAST SURGICAL HISTORY 1. Right middle lobe lobectomy. 2. Tubal ligation. 3. MediPort placement. HOME MEDICATIONS Norvasc 5 mg p.o. daily, Eliquis 5 mg p.o. b.i.d., aspirin 325 mg p.o. daily, Symbicort 160/4.5 mcg 2 puffs inhalation b.i.d., vitamin D3 50,000 units p.o. weekly on Friday, Lomotil 2.5/0.025 mg one tablet p.o. every 6 hours p.r.n., Lortab 5/325 mg 1 tablet p.o. p.r.n., metoprolol tartrate 25 mg p.o. q.8 hours., Zofran 8 mg p.o. every 8 hours p.r.n., Phenergan 25 mg p.o. every 6 hours half tablet p.r.n., Ventolin 1 puff inhalation q.4 hours p.r.n. ALLERGIES No known drug allergies. SOCIAL HISTORY The patient lives in a private residence with her cousin. She is a reformed smoker and quit 2 months ago. She previously smoked a pack and half of cigarettes per day. She has smoked for over 50 years. There are no reports of alcohol or illicit drug use. FAMILY HISTORY Noncontributory for heart disease. REVIEW OF SYSTEMS Ten-point review of systems negative except for details noted above in HPI. PHYSICAL EXAMINATION VITAL SIGNS: Temperature 98.4, pulse 103, blood pressure 137/96. CONSTITUTIONAL: This is a 66-year-old, female, in no acute distress. SKIN: Warm and dry. NECK: Supple. No jugular vein distention. No hepatojugular reflux. Normal carotid upstrokes. No carotid bruits auscultated. HEART: S1 and S2. Regular rate and rhythm. No murmurs, rubs, or gallops. LUNGS: Bilateral breath sounds have good air entry throughout all lung samuels. Respirations are even and nonlabored. No rales, rhonchi, or wheezes. ABDOMEN: Soft, nontender, and nondistended. Positive bowel sounds auscultated x4 quadrants. No ascites noted. EXTREMITIES: Lower extremities have no pretibial or pitting edema. DP Unit #: [id number] #: [id number] Patient: GUNN,DARWIN and PT pulses are 2+. Capillary refill less than 2 seconds. DIAGNOSTIC STUDIES LABORATORY RESULTS: White blood cell count 2.9, hemoglobin 9.2, hematocrit 27.8, platelets 223. Sodium 143, potassium 3.0, chloride 107, CO2 of 26, BUN 5, creatinine 0.3, glucose 104, magnesium 2.0. AST 25, ALT 13, alkaline phos 71. Troponin 0.03 and 0.03. BNP 71. Lactic acid 1.0. TSH pending. PTT 29.1, troponin 0.05. IMAGING STUDIES: Chest x-ray reveals no acute findings. Scar in the right lung. Stable right hilar fullness. Residual malignancy. CT of the abdomen and pelvis with inflammatory changes of the distal descending colon and proximal to mid sigmoid colon, question infectious versus inflammatory colitis. Diverticulitis is a strong consideration. Cirrhotic morphology of the liver. CT of the chest without contrast reveals postsurgical changes in the right lower lobe. New small right effusion. Volume loss in the right pneumothorax with surgical changes, sutures in the right upper chest, subcarinal soft tissue thickening/adenopathy. Emphysema. Questionable gallbladder sludge. Old right rib fractures. Questionable left renal stone versus vascular calcification. CARDIOVASCULAR: EKG reveals normal sinus rhythm with a ventricular rate of 97 beats per minute. No acute ST or T-wave changes. QTc 452 msec. IMPRESSION 1. Sigmoid colitis. 2. Anemia, status post esophagogastroduodenoscopy on 05/05/2017 with gastritis and duodenal ulcer with visible vessel, status post heat probe, sclerotherapy with epi and clip. 3. Anemia. 4. Mild leukopenia. 5. Nonsustained ventricular tachycardia. 6. Chronic obstructive pulmonary disease. 7. Hypokalemia. 8. History of diastolic congestive heart failure, now compensated. 9. Non-small cell lung cancer with history of right middle lobe lobectomy with radiation and chemotherapy. 10. Hypertension. 11. Hyperlipidemia. 12. History of paroxysmal atrial fibrillation, now sinus rhythm. 13. History of cerebrovascular accident with left hemiparesis. PLAN 1. The patient was in the hospital with complaints of abdominal pain. She was admitted for colitis and started on antibiotics. 2. Cardiology was consulted for nonsustained ventricular tachycardia. The patient will be started on metoprolol with parameters for heart rate control. 3. Potassium is low and supplements have been ordered. Magnesium is normal. 4. TSH level is pending. 5. The patient follows at [facility]. We will obtain a copy of previous 2D echocardiogram, EKG and cardiac testing. If 2D echocardiogram has not been done recently, the patient will have one ordered. 6. There are no reports of chest pain or evidence of congestive heart Unit #: [id number] #: [id number] Patient: DARWIN GUNN failure on exam. 7. The patient can proceed with colonoscopy at acceptable risk. However, she is declining bowel prep and may not be agreeable. Dictated by... Leticia Chinchilla APRN for Zackary Gmable/aleida TD: 05/08/2017 05:16 JOB #: [id number] CONSULTATION REPORT Page 1 of 1 X X CONSULTATION REPORT
--- NOTE | ~2017-05-03 | DS ---
Unit #: [id number] #: [id number] Patient: DARWIN GUNN [id number] [address] [place], [place] [address] [id number] MR#: [id number] NAME: DARWIN GUNN ROOM: 330 Age: 66 Sex: F Admission Date: 05/03/2017 : 1950 Discharge Date: 05/08/2017 Attending Physician: Kaylynn Hendrix M.D. Primary Care Physician: Hiwot Nelson M.D. DISCHARGE SUMMARY REASON FOR ADMISSION Emesis x48 hours. HISTORY OF PRESENT ILLNESS/HOSPITAL COURSE The patient is a 66-year-old female, prior history of non-small cell lung carcinoma, CVA with resultant upper extremity weakness, chronic immobility syndrome, who presented secondary to several emesis episodes while at home. Initially she was evaluated in the emergency room and noted to have an elevated temperature of 101.7, pulse 142, respiratory rate 22, initial urinalysis was concerning for possible urinary tract infection. She was subsequently admitted for the same. Ultimately through the hospital course her blood cultures did not show any acute bacteria growth, she did undergo a CT of the abdomen and pelvis which was performed in 05/03/2017, did show inflammatory changes in the distal descending colon proximal to mid sigmoid colon consistent with extensive diverticulitis and/or colitis. The patient was placed on appropriate IV antibiotics. Consultation was also placed to Dr. Orozco of gastroenterology services. On May 05, 2017, Dr. Orozco performed an upper GI endoscopy which did show an anterior duodenal ulcer with visible vessel, and recent stigmata from recent bleed. Hemostasis was achieved after epinephrine injection, prepyloric antral gastritis was also noted. The patient, today, at the time of discharge has a current hemoglobin of 9.5, platelets of 234, white count of 2.7. On heart monitor, the patient was noted to have nonsustained ventricular tachycardia episodes and we placed consultation to cardiology services. Dr. [facility] on evaluation of the patient, the patient was started on Lopressor, appropriate electrolytes were repleted. At the time of discharge, the patient will be recommended to follow up with her routine user experience analyst through [facility]. The patient secondary to elevated temperature did have a CT scan of the chest without contrast on May 04, 2017. This CT noncontrast did reveal new air space disease and a posteromedial right lower lobe may represent evolving pneumonia. There was some volume loss which is in the right hemithorax consistent with some prior, or consideration for possible residual malignancy. Unit #: [id number] #: [id number] Patient: DARWIN GUNN Emphysema was also noted, gallbladder sludge was also noted. These results were conveyed to the patient and strong recommendation was made for her to follow up as an outpatient with her primary care physician and/or oncologist for further evaluation in regards to possible residual malignancy and/or further workup. At this point in time, the patient will be discharged on both p.o. Levaquin as well as p.o. Flagyl, Levaquin for both community acquired pneumonia as well as aforementioned colitis/diverticulitis. She has now been tolerating diet well. She has had no emesis episodes while she has been here. She has received symptom management. She is, otherwise and clinically appears stable for discharge. FINAL DISCHARGE DIAGNOSES 1. Acute diverticulitis. 2. Acute colitis. 3. Emesis, now improved. 4. Prior history of lung carcinoma with questionable residual malignancy. 5. Community acquired pneumonia. 6. Prior cerebrovascular accident with resultant left upper extremity weakness. 7. Chronic immobility syndrome. 8. Hypertension. 9. Anemia, baseline hemoglobin if approximately 9. 10. Peptic ulcer, status post epinephrine injection this hospital admission. 11. Gallbladder sludge. 12. Nonsustained ventricular tachycardia. 13. Proximal atrial fibrillation history. FINAL DISCHARGE MEDICATIONS 1. Albuterol aerosol q.4 p.r.n. 2. Symbicort 160/4.5 two puffs b.i.d. 3. Zofran 8 mg p.o. q.8 p.r.n. 4. Phenergan 25 mg p.o. q.6 p.r.n. 5. Cymbalta 30 mg p.o. daily 6. Lopressor 25 mg p.o. b.i.d. 7. [place] 5/325 one tablet p.o. q.4-6 p.r.n. home medication 8. Protonix 40 mg p.o. b.i.d. 9. Levaquin 500 mg p.o. daily x10 days 10. Flagyl 500 mg p.o. q.8 x10 days INSTRUCTIONS The patient is to follow up with primary care physician in 7 to 10 days to coordinate further care including followup appointment with oncologist in regards to lung carcinoma, followup CT abdomen and pelvis in regards to resolution of the diverticulitis/colitis, repeat laboratory studies including BMP and CBC, consideration may be given to outpatient evaluation by general surgery for consideration of possible cholecystectomy if recurrent episodes of nausea and vomiting persist in the future. Plans have been conveyed and discussed with the patient. Time spent: 55 minutes. Unit #: [id number] #: [id number] Patient: DARWIN GUNN Dictated by... Zackary Mcclellan/cyrus TD: 05/09/2017 12:00 JOB #: [id number] DISCHARGE SUMMARY Page 1 of 1 X Kaylynn Hendrix MD X DISCHARGE SUMMARY
--- NOTE | ~2017-05-03 | EKG ---
PATIENT: DARWIN GUNN UNIT #: [id number] Ventricular Rate: 141 BPM Atrial Rate: 144 BPM P-R Interval: 128 ms QRS Duration: 64 ms Q-T Interval: 352 ms QTC Calculation(Bezet): 539 ms P [place]: 59 degrees Calculated R [place]: -18 degrees Calculated T [place]: 62 degrees Diagnosis Line: Sinus tachycardia Diagnosis Line: Low voltage QRS Diagnosis Line: Septal infarct , age undetermined Diagnosis Line: Abnormal ECG Diagnosis Line: Diagnosis Line: Confirmed by KITTY HART MD ([id number]) on 05/04/2017 Diagnosis Line: 5:52:54 PM INTERPRETING MD: TANNER DYER
--- NOTE | ~2017-05-03 | CT57 ---
[facility] A Service of [facility] & [facility] RADIOLOGY TEXT RESULTS PATIENT: DARWIN GUNN LOCATION: [facility] 330-01 : 49 UNIT #: [id number] AGE: [address]: Kaylynn Hendrix MD SEX: F ORDER DR: [id number] [facility] [address] [place], [place] [address] [id number] I MR#: [id number] #: [id number] NAME: DARWIN GUNN : 1950 SEX: F STUDY DATE/TIME: 05/04/2017 14:06 UNIT: C3A PCU ROOM: 330 STUDY DESCRIPTION: CT Chest Wo Cont Attending Physician: Kaylynn Hendrix M.D. Ordering Physician: Kaylynn Hendrix M.D. Primary Care Physician: Hiwot Nelson M.D. MEDICAL IMAGING REPORT This report is preliminary unless electronic signature is present EXAM CT chest without contrast, 05/04/2017 HISTORY Vomiting for 3 days with fever. History of lung cancer. COMPARISON AP portable chest 05/03/2017 at 10:02. CT angiography of the chest with contrast PE protocol 04/08/2017. CT chest 04/08/2017. PROCEDURE 5.0 mm axial images through the chest without contrast. Sagittal coronal reformatted images were obtained. This CT exam was performed with one or more of the following radiation dose reduction techniques: automatic exposure control, adjustment of mA and/or kV according to patient size, and iterative reconstruction. FINDINGS Surgical chain sutures traverse the right mid lung, mostly within the region of the right upper lobe. Curvilinear soft tissue thickening is seen along the suture margin, thought to be similar to prior examination allowing for slight differences in slice selection and slice thickness. There is soft tissue fullness in the right hilum. Soft tissue thickening versus adenopathy in the subcarinal region measures about 2.3 cm, not thought to be significantly changed from prior. There is layering mucous or fluid density within the right mainstem bronchus and bronchus intermedius. There is new posterior medial right lower lobe airspace disease with a small right pleural effusion. The right pleural fluid layers to a depth of 1.6 cm. Background emphysematous changes are present. Multiple old right rib fractures. Dense coronary artery calcifications. Right chest wall Jaip-G-Lvvjgkxv extends to the upper right atrial level. [facility] A Service of [facility] RADIOLOGY TEXT RESULTS PATIENT: DARWIN GUNN LOCATION: C3A 330-01 : [birth year] UNIT #: [id number] AGE: [address]: Kaylynn Hendrix MD SEX: F ORDER DR: No visible pneumothorax. High-density material is present within the gallbladder which could represent sludge. No definite gallstones are seen. Tiny noncalcified stone versus vascular calcification left upper renal pole. Several of the images in the upper abdomen are degraded by motion. No acute or suspicious osseous lesions are identified. IMPRESSION 1. There is new airspace disease in the posterior medial right lower lobe since the 04/08/2017 examination, and may represent evolving pneumonia. New small right pleural effusion has developed. 2. Volume loss in the right hemithorax with surgical chain sutures in the right upper chest with some surrounding soft tissue thickening. Additionally, there is soft tissue thickening in the right hilum. While these findings may simply reflect changes of treated disease and/or fibrosis, residual malignancy cannot be excluded, particularly without the benefit of more remote outside comparison studies. The aforementioned findings, however, are stable since 04/08/2017. 3. Subcarinal soft tissue thickening or adenopathy, unchanged from 04/08/2015. Again, whether this represents chronic fibrosis versus residual or recurrent malignancy cannot be ascertained without the benefit of more remote comparisons. 4. Emphysema. 5. High-density material within the gallbladder may represent gallbladder sludge. 6. Questionable punctate nonobstructing left renal stone versus vascular calcification. 7. Old right rib fractures. Dictated by... Rachel Ruggiero M.D. THIS IS AN ELECTRONICALLY VERIFIED REPORT Rachel Ruggiero M.D. at 05/05/2017 9:54 AM PEYTON/yadira TD: 05/04/2017 16:43 JOB #: [id number] MEDICAL IMAGING REPORT Page 1 of 1 COPY
--- NOTE | ~2017-05-03 | CO ---
Unit #: [id number] #: [id number] Patient: DARWIN HENSLEY [id number] [address] [address] [id number] I MR#: [id number] NAME: DARWIN HENSLEY ROOM: 330 Age: 66 Sex: F Admission Date: 05/03/2017 : 1950 Attending Physician: Kaylynn Hendrix M.D. Primary Care Physician: Hiwot Nelson M.D. Consultation Date: 05/05/2017 CONSULTATION REPORT ADDITIONAL ATTENDING PHYSICIAN Kaylynn Hendrix M.D. PRIMARY CARE PHYSICIAN Hiwot Nelson M.D. REASON FOR CONSULTATION 1. Nausea and vomiting. 2. Anemia. 3. Colitis in a CAT scan. HISTORY OF PRESENT ILLNESS Ms. Hensley is a pleasant 66-year-old female, who has non-small cell lung cancer, status post chemo and radiation therapy. The patient presented because of her inability to keep any food down and having nausea and vomiting for the past 2 to 3 days. She has also had some upper abdominal discomfort. The patient has had some loose stools, but these have only been present for one or two days. She has recently finished a course of radiotherapy and currently receiving chemotherapy for non-small cell lung cancer. PAST MEDICAL HISTORY Significant for history of non-small cell lung cancer stage IIIA, status post right middle lobe lobectomy for the same reason and status post chemoradiation therapy. She is followed by Dr. Chinchilla for the latter. Previous history of stroke with residual left-sided upper extremity weakness, history of anemia of chronic disease, hypertension. The patient on chronic anticoagulation with Eliquis. PAST SURGICAL HISTORY Included a right middle lobe lobectomy, tubal ligation, and port placement. HOME MEDICATIONS Included Norvasc, Eliquis, aspirin, Symbicort, vitamin D3, Lomotil, Lortab, Lopressor, Zofran, Phenergan, and Ventolin inhaler. ALLERGIES She has no known drug allergies. SOCIAL HISTORY The patient lives with her cousin. She is an ex-smoker, having stopped few years ago. Does not drink alcohol. FAMILY HISTORY Unit #: [id number] #: [id number] Patient: HENSLEY,DARWIN Significant for some malignancy, but not sure which ones. REVIEW OF SYSTEMS Detailed review of organ systems does not reveal any fever, chills, or rigors. It is not clear whether the patient has lost any weight, but her appetite has generally been poor. History of nausea and vomiting, possible diarrhea. No history of overt GI bleed in the form of hematemesis, melena, or hematochezia. No history of cough, expectoration, or hemoptysis. No history of dysuria, hematuria, or pyuria. No history of focal seizures or extremity weakness. There is a history of focal left upper extremity weakness. No history of skin rash, aphthous ulcers in the mouth, or reactive arthritis. PHYSICAL EXAMINATION GENERAL: She is awake, alert, oriented, and appears very frail. VITAL SIGNS: Stable with a temperature of 97.8, she has a basal tachycardia of 120, respiratory rate is 18, and blood pressure is 124/74. HEENT: She has mild pallor. There being no icterus, lymphadenopathy, or peripheral edema. CARDIOVASCULAR: Normal heart sounds. No murmurs on auscultation. LUNGS: Over the lungs reveals bilateral symmetric diminished air entry. ABDOMEN: Soft and nontender. Liver and spleen are not palpable. Bowel sounds normal. DIAGNOSTIC STUDIES LABORATORY RESULTS: Shows admission hemoglobin of 8.9, hemoglobin today is 9.4, her baseline hemoglobin has been between 11 and 13 in the past. The red cell indices are normochromic and normocytic. White count was 11,000 on admission and 7000 today, platelet count is 211 and normal. Urinalysis is suggestive of urinary tract infection with positive nitrites and leukocyte esterase positive. INR/PTT is 29.1. Serum chemistry shows a BUN and creatinine which is normal and a sodium of 137, potassium 3.3 which has since then normalized. Her albumin is 3.1 and the patient has mild indirect hyperbilirubinemia. Transaminase is normal and alkaline phosphatase is also normal. IMAGING STUDIES: The patient has had a CT scan of the abdomen and pelvis 2 days ago and the latter reveals presence of what seemed like a long segment of colonic inflammatory changes involving the distal descending colon with extensive diverticulosis. There is no peridiverticular abscess nor any free air in the abdomen. CLINICAL IMPRESSION 1. It is possible the patient may have underlying infectious or ischemic colitis. She is too sick to withstand any colonoscopy. She also has history of nausea, vomiting, and upper abdominal discomfort. A diagnostic endoscopy is warranted. 2. Urinary tract infection. 3. Non-small cell lung cancer, status post XRT and radiation therapy. A diagnostic endoscopy is being scheduled for later today. The patient will continue on IV antibiotics for the urinary infection. Thank you very much for asking me to see this pleasant woman. I appreciate the consult. Dictated by... Nakul Orozco M.D. Unit #: [id number] #: [id number] Patient: DARWIN HENSLEY YA/aleida TD: 05/06/2017 06:11 JOB #: [id number] Rosaura Max M.D. . CONSULTATION REPORT Page 1 of 1 X Nakul Orozco MD X CONSULTATION REPORT
--- NOTE | ~2017-05-03 | CT2 ---
[facility] A Service of [facility] & [facility] RADIOLOGY TEXT RESULTS PATIENT: DARWIN GUNN LOCATION: [facility]3A 330-01 : [birth year] UNIT #: [id number] AGE: [address]: Kaylynn Hendrix MD SEX: F ORDER DR: [id number] [facility] [address] [place], [place] [address] [id number] E MR#: [id number] Acc #: [id number] NAME: DARWIN GUNN : 1950 SEX: F STUDY DATE/TIME: 05/03/2017 12:46 UNIT: ELEAZAR ROOM: STUDY DESCRIPTION: CT Abd and Pelv W Cont Attending Physician: Sherrill Booth A.P.R.N. Ordering Physician: Ed Doctor [id number] [facility] Primary Care Physician: Hiwot Nelson M.D. MEDICAL IMAGING REPORT This report is preliminary unless electronic signature is present EXAM CT abdomen and pelvis, 05/03/2017 HISTORY Vomiting for 2 days nausea, diaphoretic, radiation last week. Chemo now. Lung cancer 2016. EtOH, smokes pot. TECHNIQUE CT of the abdomen and pelvis performed with administration of 100 mL Isovue-370. Enteric contrast not administered. This CT exam was performed with one or more of the following radiation dose reduction techniques: automatic exposure control, adjustment of mA and/or kV according to patient size, and iterative reconstruction. COMPARISON 04/08/2017 FINDINGS Assessment of lung bases degraded by respiratory motion artifact. Emphysema. Azygoesophageal recess node measuring about 1.7 cm in diameter unchanged from 04/08/2017 in its visualized extent. Presumed related to the patient's stated pulmonary malignancy. Right pleural thickening. Heart normal in size. Cardiac pacing leads in place. Coronary arterial calcifications. The liver has a slightly nodular configuration. Correlate with any clinical indications of cirrhosis. There is no suspicious focal hepatic parenchymal abnormality and the gallbladder is unremarkable. The spleen, pancreas, adrenal glands, kidneys are unremarkable. CT PELVIS: There is no inguinal adenopathy. There is a stable homogeneously fat density presumed lipoma along the left lateral aspect of the mid to inferior iliopsoas muscle extending to the level of the left femoral head. No inguinal adenopathy. Uterus unremarkable. Adnexal STS. [facility] A Service of [facility] RADIOLOGY TEXT RESULTS PATIENT: DARWIN GUNN LOCATION: C3A PC 330-01 : [birth year] UNIT #: [id number] AGE: [address]: Kaylynn Hendrix MD SEX: F ORDER DR: structures show no indication of primary acute abnormality. There is trace free fluid in the pelvis. This is not a drainable fluid collection and is favored to be secondary to sigmoid inflammatory change discussed below. No pelvic or new retroperitoneal nodes seen. There are some mildly prominent left periaortic nodes at level of the mid left kidney. Stable. Probably reactive in nature. Distal esophagus, stomach, small bowel, appendix normal. Long segment of colonic inflammatory change involving the distal descending colon, and proximal to mid sigmoid colon. Extensive diverticulosis in this region. There is mural thickening and malgorzata-sigmoidal haziness and fat stranding. There is some mucosal enhancement. The appearance suggests infectious or inflammatory distal descending and sigmoid colitis. A distinct inflamed diverticulum is not identified but given the extensive diverticulosis, diverticulitis is a primary consideration. There is no free, air fluid collection or abscess. There is no obstruction. Atherosclerotic arterial calcifications. No acute-appearing bony abnormality. Degenerative changes in the spine. IMPRESSION 1. Please see complete dictation above for full details. Inflammatory changes in the distal descending colon and proximal to mid sigmoid colon. More pronounced than on prior examination and consistent with infectious or inflammatory colitis in these regions. There is extensive underlying diverticulosis. While localized inflamed diverticulum is not seen, certainly extensive diverticulitis in this region is a strong consideration. There is wall thickening, mucosal enhancement and pericolonic inflammatory change along the involved segments. All of these findings are more pronounced than on prior study. There is no drainable fluid collection, free air or abscess. There is a trace amount of fluid in the deep pelvis favored to be reactive in nature. Not drainable. 2. Cirrhotic morphology of liver. 3. Appendix, kidneys, uterus and adnexal structures unremarkable. 4. Stable findings in the visualized lower thorax. See above. 5. Small retroperitoneal lymph nodes unchanged. Probably benign in nature. Attention at followup recommended. 6. 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 Dictated by... Damion James M.D. THIS IS AN ELECTRONICALLY VERIFIED REPORT Damion James M.D. at 05/04/2017 9:31 PM CHRIS/yadira TD: 05/03/2017 17:03 JOB #: [id number] [facility]. [facility] A Service of [facility] & [facility] RADIOLOGY TEXT RESULTS PATIENT: DARWIN GUNN LOCATION: [facility] 330-01 : [birth year] UNIT #: [id number] AGE: [address]: Kaylynn Hendrix MD SEX: F ORDER DR: MEDICAL IMAGING REPORT Page 1 of 1 COPY
--- NOTE | ~2017-05-03 | HP ---
Unit #: [id number] #: [id number] Patient: DARWIN GUNN [id number] [facility] [place], [place] [address] [id number] E MR#: [id number] NAME: DARWIN GUNN ROOM: Age: 66 Sex: F Admission Date: 05/03/2017 : 1950 Attending Physician: Sherrill Booth A.P.R.N. Primary Care Physician: Hiwot Nelson M.D. HISTORY AND PHYSICAL CHIEF COMPLAINT Vomiting for two days. HISTORY OF PRESENT ILLNESS The patient is a 66-year-old female with a past medical history of non-small cell lung cancer, cerebrovascular accident, hypertension, anemia, who presented to the emergency department for evaluation of the above. The patient states that she has had a two day history of abdominal pain, vomiting, and diarrhea. The abdominal pain is periumbilical. She describes it as "achy." There are no exacerbating or alleviating factors. She denies any similar pain. She has had vomiting but none within the past 24 hours. She also reports one loose stool within the past 24 hours. She denies any urinary symptoms. The patient is currently receiving chemotherapy for lung cancer. Her last treatment was in March. Her last radiation treatment was about a week ago. She is followed by Dr. Chinchilla. In the emergency department temperature was 101.7, pulse 142, respirations 22. Chest x-ray shows no acute abnormality. Urinalysis shows findings concerning for urinary tract infection. She was given Rocephin in the emergency department. She is being admitted to [facility] for evaluation and further treatment. PAST MEDICAL HISTORY 1. Admission to [facility] 04/08/2017 through 04/12/2017 for diverticulitis and sepsis. She was discharged home on Augmentin and Flagyl. She states that she returned to baseline. 2. Non-small cell lung cancer, stage 3A, status post right middle lobe lobectomy. The patient is currently receiving chemotherapy and just completed radiation treatments. She is followed by Dr. Chinchilla. 3. Cerebrovascular accident with residual left upper extremity weakness. 4. Hypertension. 5. Anemia. 6. Chronic anticoagulation with Eliquis. The patient is not sure why she is on Eliquis. PAST SURGICAL HISTORY 1. Right middle lobe lobectomy. 2. Tubal ligation. 3. Port placement. SOCIAL HISTORY The patient lives with her cousin. She is a former smoker. There is no Unit #: [id number] #: [id number] Patient: DARWIN GUNN alcohol use. Her code status is a full code. FAMILY HISTORY Positive for malignancy. REVIEW OF SYSTEMS A complete review of systems is negative except as indicated in the HPI. ALLERGIES No known allergies. HOME MEDICATIONS Norvasc 5 mg daily; Eliquis 5 mg twice daily; aspirin 325 mg daily; Symbicort 160/4.5 two puffs inhaler twice daily; vitamin D3 50,000 units weekly; Lomotil p.r.n.; Lortab 5/325 q.4 hours 1-2 tablets p.r.n.; Lopressor 25 mg q.8 hours; Zofran 8 mg q.8 hours p.r.n.; Phenergan 25 mg q.6 hours p.r.n.; Ventolin inhaler q.4 hours p.r.n. PHYSICAL EXAMINATION VITAL SIGNS: Temperature is 101.7, pulse 142, respirations 28, blood pressure 130/86 but did drop to as low at 94/65, oxygen saturation 96% on room air. GENERAL: The patient is an -[place] female who is chronically ill appearing but in no acute distress. HEENT: Head is atraumatic. Mucous membranes are moist. NECK: Supple. Trachea is midline. CARDIOVASCULAR: Tachycardic in the 130s. LUNGS: Demonstrate a few scattered rhonchi and crackles. Breathing is not labored. ABDOMEN: Soft. She is tender to palpation in the periumbilical area. Bowel sounds are present in all four quadrants. EXTREMITIES: Nontender with no pedal edema. The left upper extremity is contracted. NEUROLOGIC: The patient is awake and alert. She follows commands. PSYCH: Mood and affect are normal. The patient is cooperative. SKIN: The skin of examined areas if warm and dry. DIAGNOSTIC STUDIES CARDIOLOGY STUDIES: EKG shows sinus tachycardia with a rate of 141 BPM. IMAGING STUDIES: Chest x-ray shows nothing acute. CT of the abdomen and pelvis is pending. LABORATORY STUDIES: Troponin is less than 0.05. Lactic acid is 0.7. Comprehensive metabolic panel notable for a potassium of 3.3, chloride 115, calcium 10.4, total bilirubin 2.1, albumin 3.5, lipase is less than 10. Complete blood count notable for white blood cell count of 10.8, hemoglobin and hematocrit 9.4 and 38.3 respectively. BNP is 72, urinalysis notable for 1+ leukocyte esterase, positive nitrate, trace protein, 2+ ketones, 1+ bacteria. ASSESSMENT The patient is a 66-year-old female with: 1. Urinary tract infection. There were a urine culture from 02/28/2016 that showed no growth. She was given Rocephin in the emergency department. 2. Sepsis with initial lactic acid of 0.7. Unit #: [id number] #: [id number] Patient: DARWIN GUNN 3. Hypokalemia with potassium of 3.3. 4. Anemia. The patient's hemoglobin was 8.5 on 04/12/2017, it is 9.4 today. 5. History of non-small cell lung cancer, stage 3, followed by Dr. Chinchilla, currently receiving chemotherapy, status post lobectomy and radiation treatment. 6. Cerebrovascular accident with residual left upper extremity weakness. 7. Hypertension. The patient's blood pressure has actually run low in the emergency department. 8. Chronic anticoagulation with Eliquis. The patient is unclear why she is taking Eliquis. The discharge summary from 04/12/2017 does not include Eliquis but the patient states that she has been taking it for an unknown duration but was taking it during the last admission. PLAN 1. Admit to an intermediate level. 2. Blood cultures x2. 3. Urine culture and sensitivity on urine in the lab. 4. Rocephin 1 g IV daily pending results of urine culture. 5. Sepsis protocol. 6. Followup results of CT abdomen and pelvis. 7. Check magnesium level. 8. Potassium magnesium protocol. 9. P.r.n. Zofran. 10. P.r.n. Tylenol. 11. Serial cardiac enzymes. 12. Repeat labs in the morning. 13. Additional workup and consultants based on above. Dictated by Rosaura Max M.D. Silvio TD: 05/03/2017 16:21 JOB #: [id number] HISTORY AND PHYSICAL Page 1 of 1 X Rosaura Max MD HISTORY AND PHYSICAL
[~2017-05-03 09:02] MED LIST changes: +ALBUTEROL17 GM INH; +AMOXICILLIN875 MG PO; +BAYER ASPIRIN325 M1 PO; +HYDROCODON-ACE1 EAC7 PO; +LOMOTIL WHITE2.5 M1 PO; +METRONIDAZOLE PO; +PATIENT'S PHARMACY
[2017-05-03 10:20] LABS: BASOPHIL% 0.1 % (0-2.5); EOSINOPHIL% 0.1 % (0.0-7.0); HEMATOCRIT 28.3 % (35.0-45.0); HEMOGLOBIN 9.4 gm/dL (12.0-16.0); LYMPHOCYTE# 0.5 X10e3 (1.0-3.5); LYMPHOCYTE% 4.7 % (17.0-45.0); MEAN CELL VOLUME 91.7 FL (83-96); MEAN CORPUSCULAR HEMOGLOBIN 30.3 PG (28-34); MEAN CORPUSCULAR HGB CONC 33.1 g/dL (30-36); MEAN PLATELET VOLUME 8.4 FL (6.5-11.5); MONOCYTE# 2.1 X10e3 (0-1.0); MONOCYTE% 19.4 % (3.0-12.0); NEUTROPHIL# 8.2 X10e3 (1.5-7.1); NEUTROPHIL% 75.7 % (40-75); PLATELET COUNT 211 X10e3 (140-420); RED BLOOD COUNT 3.09 X10e (3.90-5.30); RED CELL DISTRIBUTION WIDTH 23.6 % (11.0-15.5); WHITE BLOOD COUNT 10.8 X10e3 (4.0-10.5)
[2017-05-03 10:22] LABS: DIFF IND YES
[2017-05-03 10:27] LABS: POC - CKMB <1.0 ng/mL (0.0-7.9); POC - TROPONIN <0.05 ng/mL (<=0.05)
[2017-05-03 10:41] LABS: ALBUMIN SERUM 3.5 g/dL (3.5-5.0); ALKALINE PHOSPHATASE 89 U/L (32-92); ALT (SGPT) 12 U/L (10-40); AST (SGOT) 21 U/L (10-42); BILIRUBIN,INDIRECT 1.1 mg/dL (0.0-0.9); BILIRUBIN,TOTAL 2.1 mg/dL (0.2-2.0); BLOOD UREA NITROGEN 6 mg/dL (9-23); CALCIUM SERUM 10.4 mg/dL (8.4-10.2); CARBON DIOXIDE 22 mmol/L (22-31); CHLORIDE 106 mmol/L (100-111); CREATININE SERUM 0.3 mg/dL (0.6-1.4); GLOM FILT RATE Estimated 137.4 mL/min (>60); GLUCOSE FASTING 115 mg/dL (70-110); LIPASE <10 U/L (22-51); POTASSIUM 3.3 mmol/L (3.5-5.1); SODIUM 137 mmol/L (135-145)
[2017-05-03 10:47] LABS: ANISOCYTOSIS SL; PLATELET ESTIMATE NORMAL (NORMAL); POIKILOCYTOSIS SL
[2017-05-03 11:32] LABS: URINE SOURCE CLEAN CATCH
[2017-05-03 11:41] LABS: URINE APPEARANCE CLOUDY; URINE BLOOD NEG (NEG); URINE COLOR ORANGE; URINE GLUCOSE NEG (NEG); URINE KETONE 2+ (NEG); URINE LEUKOCYTE ESTERASE 1+ (NEG); URINE NITRATE POS (NEG); URINE PROTEIN TRACE (NEG); URINE SPECIFIC GRAVITY 1.019 (1.003-1.035)
[2017-05-03 11:42] LABS: URINE SQUAMOUS EPITHELIAL CELL OCC /[HPF]
[2017-05-03 12:03] LABS: URINE BILIRUBIN POS (NEG)
[2017-05-03 12:04] LABS: URINE MUCUS PRESENT
[2017-05-03 12:05] LABS: URINE GRANULAR CAST 0-2 /[HPF]
[2017-05-03 12:06] LABS: CULTURE INDICATED? YES; URINE BACTERIA AUWI 1+ (NEGATIVE)
[2017-05-03] MEDS ORDERED: NORVASC PO (13:17)
[2017-05-03] MEDS ORDERED: ELIQUIS5 MG PO (13:18)
[2017-05-03] MEDS ORDERED: BAYER ASPIRIN325 M1 PO (13:18)
[2017-05-03] MEDS ORDERED: SYMBICORT INH (13:20)
[2017-05-03] MEDS ORDERED: VITAMIN D350000 UNIT PO (13:21)
[2017-05-03] MEDS ORDERED: LOMOTIL 2.5-0.1 EACH PO (13:22)
[2017-05-03] MEDS ORDERED: LORTAB 5-325 M1 EACH PO (13:23)
[2017-05-03] MEDS ORDERED: ZOFRAN8 MG PO (13:24)
[2017-05-03] MEDS ORDERED: LOPRESSOR PO (13:24)
[2017-05-03] MEDS ORDERED: PHENERGAN25 M1 PO (13:26)
[2017-05-03] MEDS ORDERED: ALBUTEROL17 GM INH (13:26)
[2017-05-03 16:27] LABS: MAGNESIUM 1.6 mg/dL (1.6-3.0)
[2017-05-03 21:39] LABS: CK TOTAL 50 IU/L (26-140)
[2017-05-04 01:43] LABS: BASOPHIL% 0.2 % (0-2.5); EOSINOPHIL% 0.1 % (0.0-7.0); HEMATOCRIT 27.5 % (35.0-45.0); HEMOGLOBIN 8.9 gm/dL (12.0-16.0); LYMPHOCYTE# 0.4 X10e3 (1.0-3.5); LYMPHOCYTE% 3.5 % (17.0-45.0); MEAN CELL VOLUME 92.3 FL (83-96); MEAN CORPUSCULAR HGB CONC 32.5 g/dL (30-36); MEAN PLATELET VOLUME 8.4 FL (6.5-11.5); MONOCYTE# 1.8 X10e3 (0-1.0); MONOCYTE% 16.4 % (3.0-12.0); NEUTROPHIL% 79.8 % (40-75); PLATELET COUNT 189 X10e3 (140-420); RED BLOOD COUNT 2.98 X10e (3.90-5.30); RED CELL DISTRIBUTION WIDTH 23.2 % (11.0-15.5); WHITE BLOOD COUNT 11.2 X10e3 (4.0-10.5)
[2017-05-04 01:44] LABS: DIFF IND NO
[2017-05-04 02:08] LABS: ALBUMIN SERUM 3.1 g/dL (3.5-5.0); ALKALINE PHOSPHATASE 80 U/L (32-92); ALT (SGPT) 11 U/L (10-40); AST (SGOT) 17 U/L (10-42); BILIRUBIN,TOTAL 2.1 mg/dL (0.2-2.0); BLOOD UREA NITROGEN <5 mg/dL (9-23); CALCIUM SERUM 9.8 mg/dL (8.4-10.2); CARBON DIOXIDE 21 mmol/L (22-31); CHLORIDE 105 mmol/L (100-111); CREATININE SERUM 0.5 mg/dL (0.6-1.4); GLOM FILT RATE Estimated 116.1 mL/min (>60); GLUCOSE FASTING 108 mg/dL (70-110); POTASSIUM 3.5 mmol/L (3.5-5.1); PROTEIN TOTAL SERUM 7.1 g/dL (6.0-8.3); SODIUM 135 mmol/L (135-145)
[2017-05-05 07:20] LABS: HEMATOCRIT 28.7 % (35.0-45.0); HEMOGLOBIN 9.4 gm/dL (12.0-16.0); MEAN CELL VOLUME 92.7 FL (83-96); MEAN CORPUSCULAR HEMOGLOBIN 30.4 PG (28-34); MEAN CORPUSCULAR HGB CONC 32.8 g/dL (30-36); MEAN PLATELET VOLUME 8.8 FL (6.5-11.5); RED BLOOD COUNT 3.09 X10e (3.90-5.30); RED CELL DISTRIBUTION WIDTH 22.9 % (11.0-15.5); WHITE BLOOD COUNT 8.1 X10e3 (4.0-10.5)
[2017-05-05 07:46] LABS: CALCIUM SERUM 10.6 mg/dL (8.4-10.2); CREATININE SERUM 0.4 mg/dL (0.6-1.4); GLOM FILT RATE Estimated 124.9 mL/min (>60); POTASSIUM 3.5 mmol/L (3.5-5.1)
[2017-05-05 16:18] LABS: HEMATOCRIT 30.3 % (35.0-45.0); HEMOGLOBIN 9.7 gm/dL (12.0-16.0); MEAN CELL VOLUME 93.7 FL (83-96); MEAN PLATELET VOLUME 8.8 FL (6.5-11.5); RED BLOOD COUNT 3.23 X10e (3.90-5.30); RED CELL DISTRIBUTION WIDTH 23.5 % (11.0-15.5); WHITE BLOOD COUNT 7.1 X10e3 (4.0-10.5)
[2017-05-06 04:59] LABS: HEMOGLOBIN 8.6 gm/dL (12.0-16.0); MEAN CELL VOLUME 91.9 FL (83-96); MEAN CORPUSCULAR HEMOGLOBIN 30.3 PG (28-34); MEAN PLATELET VOLUME 8.4 FL (6.5-11.5); RED BLOOD COUNT 2.83 X10e (3.90-5.30); RED CELL DISTRIBUTION WIDTH 22.9 % (11.0-15.5); WHITE BLOOD COUNT 3.7 X10e3 (4.0-10.5)
[2017-05-06 06:45] LABS: BLOOD UREA NITROGEN 6 mg/dL (9-23); CALCIUM SERUM 9.9 mg/dL (8.4-10.2); CARBON DIOXIDE 25 mmol/L (22-31); CHLORIDE 104 mmol/L (100-111); CREATININE SERUM <0.3 mg/dL (0.6-1.4); GLOM FILT RATE Estimated UNABLE TO CALCULATE mL/min (>60); GLUCOSE FASTING 90 mg/dL (70-110); SODIUM 141 mmol/L (135-145)
[2017-05-07 08:03] LABS: HEMATOCRIT 27.8 % (35.0-45.0); HEMOGLOBIN 9.2 gm/dL (12.0-16.0); MEAN CELL VOLUME 91.8 FL (83-96); MEAN CORPUSCULAR HEMOGLOBIN 30.2 PG (28-34); MEAN CORPUSCULAR HGB CONC 32.9 g/dL (30-36); MEAN PLATELET VOLUME 8.7 FL (6.5-11.5); RED BLOOD COUNT 3.03 X10e (3.90-5.30); WHITE BLOOD COUNT 2.9 X10e3 (4.0-10.5)
[2017-05-07 08:25] LABS: ALBUMIN SERUM 3.1 g/dL (3.5-5.0); ALKALINE PHOSPHATASE 71 U/L (32-92); ALT (SGPT) 13 U/L (10-40); AST (SGOT) 25 U/L (10-42); BILIRUBIN,TOTAL 0.3 mg/dL (0.2-2.0); BLOOD UREA NITROGEN <5 mg/dL (9-23); BUN/CREATININE RATIO 16.66; CALCIUM SERUM 10.1 mg/dL (8.4-10.2); CARBON DIOXIDE 26 mmol/L (22-31); CHLORIDE 107 mmol/L (100-111); CREATININE SERUM 0.3 mg/dL (0.6-1.4); GLOM FILT RATE Estimated 137.4 mL/min (>60); GLUCOSE FASTING 104 mg/dL (70-110); PROTEIN TOTAL SERUM 7.4 g/dL (6.0-8.3); SODIUM 143 mmol/L (135-145)
[2017-05-08 05:27] LABS: HEMATOCRIT 29.6 % (35.0-45.0); HEMOGLOBIN 9.5 gm/dL (12.0-16.0); MEAN CELL VOLUME 93.6 FL (83-96); MEAN CORPUSCULAR HEMOGLOBIN 29.9 PG (28-34); MEAN CORPUSCULAR HGB CONC 31.9 g/dL (30-36); MEAN PLATELET VOLUME 8.6 FL (6.5-11.5); RED BLOOD COUNT 3.16 X10e (3.90-5.30); RED CELL DISTRIBUTION WIDTH 22.3 % (11.0-15.5); WHITE BLOOD COUNT 2.7 X10e3 (4.0-10.5)
[2017-05-08 06:54] LABS: CALCIUM SERUM 10.1 mg/dL (8.4-10.2); CARBON DIOXIDE 23 mmol/L (22-31); CHLORIDE 108 mmol/L (100-111); CREATININE SERUM 0.4 mg/dL (0.6-1.4); GLOM FILT RATE Estimated 124.9 mL/min (>60); GLUCOSE FASTING 85 mg/dL (70-110); POTASSIUM 3.4 mmol/L (3.5-5.1); SODIUM 141 mmol/L (135-145)
[2017-05-08 06:58] LABS: BLOOD UREA NITROGEN <5 mg/dL (9-23)
[2017-05-08] MEDS ORDERED: ACETAMINOPHEN PO (10:50)
[2017-05-08] MEDS ORDERED: CYMBALTA30 MG PO (10:51)
[2017-05-08] MEDS ORDERED: HYDROCODON-ACE1 EAC7 PO (10:54)
[2017-05-08] MEDS ORDERED: PROTONIX PO (10:55)
[2017-05-08] MEDS ORDERED: FLAGYL PO (10:57)
[2017-05-08] MEDS ORDERED: LEVAQUIN PO (10:57)
== END 2017-05-08 12:26 | disposition home health service (06) | DRG 391 ==
LOC: CED 09:02 → C3A PCU 14:55 → CED 17:07 → C3A PCU 17:08
PROVIDERS: Family Medicine; Internal Medicine Gastroenterology; Internal Medicine Infectious Disease; Nurse Practitioner
PROC: 0W3P8ZZ Control Bleeding in Gastrointestinal Tract, Via Natural or Artificial Opening Endoscopic (ICD-10-PCS; principal; 2017-05-05 13:30)
PROC: 0DB78ZX Excision of Stomach, Pylorus, Via Natural or Artificial Opening Endoscopic, Diagnostic (ICD-10-PCS; 2017-05-05 13:30)
DX: A09 Infectious gastroenteritis and colitis, unspecified (principal); J18.9 Pneumonia, unspecified organism; I47.2 Ventricular tachycardia; I11.0 Hypertensive heart disease with heart failure; I69.354 Hemiplegia and hemiparesis following cerebral infarction affecting left non-dominant side; I50.32 Chronic diastolic (congestive) heart failure; K26.4 Chronic or unspecified duodenal ulcer with hemorrhage; K57.92 Diverticulitis of intestine, part unspecified, without perforation or abscess without bleeding; D62 Acute posthemorrhagic anemia; N39.0 Urinary tract infection, site not specified; Z87.891 Personal history of nicotine dependence; E87.6 Hypokalemia; D63.0 Anemia in neoplastic disease; Z85.118 Personal history of other malignant neoplasm of bronchus and lung; K82.8 Other specified diseases of gallbladder; I48.0 Paroxysmal atrial fibrillation; Z79.01 Long term (current) use of anticoagulants; M62.3 Immobility syndrome (paraplegic); K29.70 Gastritis, unspecified, without bleeding; J43.9 Emphysema, unspecified; Z98.51 Tubal ligation status; Z80.9 Family history of malignant neoplasm, unspecified; E78.5 Hyperlipidemia, unspecified; F32.9 Major depressive disorder, single episode, unspecified
CPT/HCPCS: 36415; 71010; 71250; 74177; 80048; 80053; 80076; 81003; 82274; 82550; 82553; 82947; 83605; 83690; 83735; 83880; 84132; 84443; 84484; 85025; 85027; 85730; 87040; 87045; 87077; 87086; 87427; 87899; 93005; 94640; 94760; 96361; 96365; 96375; 97110; 97116; 97162; 97166; 97530; 97535; 99285; C9113; G8978-GP; G8979-GP; G8987-GO; G8988-GO; J0171; J0696; J2270; J2405; J2543; J3475; J3490; Q9967